=== PATIENT | female | born 1955 | race Caucasian/White ===

== ENCOUNTER 2017-02-24 11:15 | Outpatient (CLI) | payer MEDICARE, MEDICAID | END 2017-02-24 11:16 | disposition home or self-care (01) | LOC: BICRAD 11:15 | PROVIDERS: ATTEND Internal Medicine | DX: J18.9 Pneumonia, unspecified organism (principal); J98.4 Other disorders of lung | CPT/HCPCS: 71020 ==

== ENCOUNTER 2017-03-30 08:34 | Outpatient (CLI) | payer MEDICARE, MEDICAID ==
--- NOTE | 2017-03-30 11:06 | CT ---
CT THORAX WITH CONTRAST: DATE: 03/30/17. HISTORY: A 61-year-old female with lung cancer, currently in remission, status post chemotherapy and radiation therapy. Followup. COMPARISON: 08/29/16. TECHNIQUE: IV iodinated contrast media: 70 mL of Isovue 370. FINDINGS: The previously demonstrated left hilar mild soft tissue density material causing mild narrowing of pr oximal branches of the left mainstem bronchus, has not significantly changed. There is mild strandin g of the central pulmonary parenchyma around this, consistent with post radiation scarring of the pul monary parenchyma. The previously mentioned slightly enlarged, approximately 0.7 cm lymph node anter ior to the origin of the right mainstem bronchus, is stable. There are no new, enlarged mediastinal lymph nodes. Thoracic aorta is normal. No suspicious pulmonary mass. Bullae at the left lung apex consistent with COPD. Smaller and fewer bullae at the right upper lobe medially. No pleural effusio n, cardiomegaly, suspicious adrenal mass, or pneumothorax. No major interval change. IMPRESSION: 1. Post radiation changes of the left hilum and in the adjacent central left pulmonary parenchyma. 2. Small biapical bullae, is evidence for at least mild emphysema. 3. No major interval change since 08/28/16. CHAVEZ Verma POS: [facility]
== END 2017-03-30 08:35 | disposition home or self-care (01) ==
LOC: CT 08:34
PROVIDERS: ATTEND Internal Medicine Hematology & Oncology
DX: C34.82 Malignant neoplasm of overlapping sites of left bronchus and lung (principal); J43.9 Emphysema, unspecified; Z92.3 Personal history of irradiation
CPT/HCPCS: 71260

== ENCOUNTER 2017-05-18 07:33 | Outpatient (CLI) | payer MEDICARE, MEDICAID ==
--- NOTE | 2017-05-18 09:16 | MRI ---
MRI BRAIN WITH AND WITHOUT IV CONTRAST: Date: 05/18/17 HISTORY: Mild cognitive impairment. FINDINGS: No evidence of infarct, hemorrhage, mass, midline shift, or abnormal extra-axial fluid collections ar e seen. The ventricular size is appropriate and the basilar cisterns are patent. No restricted diffus ion is seen. No significant abnormalities are noted on the highly sensitive FLAIR images. No blood pr oducts are seen on the gradient echo sequences. No abnormal postcontrast enhancement is identified. T he visualized paranasal sinuses are well aerated. A tiny amount of fluid is seen in the mastoid air c ells. IMPRESSION: Unremarkable exam. POS: [facility]
[2017-05-18] MEDS ORDERED: Gadobenate Dimeglumine 529 MG/1 ML (20ML VIAL) ONE (16:14)
== END 2017-05-18 07:34 | disposition home or self-care (01) ==
LOC: MRI 07:33
PROVIDERS: ATTEND Psychiatry & Neurology Neurology
DX: G31.84 Mild cognitive impairment of uncertain or unknown etiology (principal)
CPT/HCPCS: 36415; 70553; 82565; A9579

== ENCOUNTER 2017-08-28 20:23 | Emergency (ER) | payer MEDICARE, MEDICAID ==
[2017-08-28] MEDS ORDERED: Lorazepam 2 MG/ML VIAL ONE (20:44)
[2017-08-28] MEDS ORDERED: methylPREDNISolone Sod Succ/PF 125 MG/2 ML VIAL ONE (20:44)
[2017-08-28 21:04] LABS: #Basophils 0.1 thou/uL (0.0-0.2); #Eosinphils 0.1 thou/uL (0.0-0.7); #Lymphocytes 3.9 thou/uL (1.20-3.40); #Monocytes 0.6 thou/uL (0.11-0.59); #Neutrophils 3.7 thou/uL (1.40-6.50); %Basophils 1.4 % (0.0-1.0); %Eosinophils 1.1 % (0.0-10.0); %Lymphocytes 46.4 % (21.0-51.0); %Monocytes 7.3 % (0.0-10.0); %Neutrophils 43.8 % (42.0-75.0); Hemoglobin 16.1 g/dL (12.0-16.0); Mean Corpuscular HGB CONC 33.9 g/dL (32.0-36.0); Mean Corpuscular Hemoglobin 31.7 pg (27.0-31.0); Mean Corpuscular Volume 93.6 fL (78.0-98.0); Mean Platelet Volume 7.2 fL (7.4-10.4); Platelet Count 267 thou/uL (130-400); RBC Distribution Width 13.3 % (11.5-14.5); Red Blood Cell (RBC) Count 5.09 mill/uL (4.20-5.40); White Blood Cell (WBC) Count 8.3 thou/uL (4.8-10.8)
[2017-08-28 21:22] LABS: ALT (SGPT) 20 U/L (8-55); AST (SGOT) 39 U/L (5-34); Albumin 4.8 g/dL (3.4-4.8); Alkaline Phosphatase 99 U/L (40-150); Anion Gap 20 mmol/L (10-20); BUN (Urea Nitrogen) 10 mg/dL (9.8-20.1); Bilirubin, Total 0.7 mg/dL (0.2-1.2); Calc. Creatinine Clearance 0 mL/min (70-130); Calcium 9.8 mg/dL (7.8-10.44); Carbon Dioxide 25 mmol/L (23-31); Chloride 102 mmol/L (98-107); Estimated GFR-MDRD 77; Globulin 3.5 g/dL (2.4-3.5); Glucose 90 mg/dL (80-115); Magnesium 2.2 mg/dL (1.6-2.6); Potassium 3.5 mmol/L (3.5-5.1); Protein, Total 8.3 g/dL (6.0-8.3); Sodium 143 mmol/L (136-145)
[2017-08-28 21:25] LABS: CKMB 3.9 ng/mL (0-6.6); Troponin I Less than 0.010 ng/mL (< 0.028)
--- NOTE | 2017-08-28 21:49 | RAD ---
RADIOGRAPH CHEST 1 VIEW: 08/28/17 HISTORY: 61-year-old female with dyspnea. FINDINGS: There is hyperinflation of the lungs, consistent with COPD. There is no evidence of air space densit y, pneumothorax, or pulmonary edema. The lateral costophrenic angles are sharp. The cardiomediastina l silhouette is normal; no cardiomegaly. IMPRESSION: 1) No acute pulmonary findings. 2) Emphysema. shahram [] POS: [facility]
== END 2017-08-28 22:15 | disposition home or self-care (01) ==
LOC: ERS 20:23
DX: J44.1 Chronic obstructive pulmonary disease with (acute) exacerbation (principal); F17.210 Nicotine dependence, cigarettes, uncomplicated
CPT/HCPCS: 36415; 71045; 80053; 82553; 83735; 84484; 85025; 85379; 93005; 94640; 96374; 96375; J2060; J2930; J7620

== ENCOUNTER 2017-09-03 11:05 | Emergency (ER) | payer MEDICARE, MEDICAID ==
[2017-09-03 12:54] LABS: Bilirubin Moderate (Negative); Blood, Urine Trace (Negative); Clarity CLEAR (Clear); Glucose, Urine (Dipstick) Negative (Negative); Leukocyte Small (Negative); Nitrite Negative (Negative); Protein, Urine (Dipstick) Trace mg/dL (Neg-Trace); Specific Gravity, Urine 1.031 (1.002-1.036); pH, Urine 5.5 (5.0-9.0)
[2017-09-03 12:58] LABS: Bacteria/HPF None Seen HPF (None Seen); Hyaline Casts/LPF 0-3 HYALINE CAST LPF (0-3 Hyaline); Pathc Cast-AUWi Flag 0.43 (0-2.49); RBC/HPF 0-3 HPF (0-3); Squamous Epithelial 0-3 HPF (0-3); WBC/HPF 0-3 HPF (0-3)
[2017-09-03 13:00] LABS: Band 3 % (5-11); Hemoglobin 15.1 g/dL (12.0-16.0); Lymphocytes 10 % (21-51); MDiff Complete? YES; Mean Corpuscular HGB CONC 33.5 g/dL (32.0-36.0); Mean Corpuscular Hemoglobin 31.9 pg (27.0-31.0); Mean Corpuscular Volume 95.4 fL (78.0-98.0); Mean Platelet Volume 7.6 fL (7.4-10.4); Monocytes 7 % (0-10); Neutrophil 78 % (42-75); PLT Morphology Comment Appears Adequate; Platelet Count 183 thou/uL (130-400); RBC Distribution Width 13.4 % (11.5-14.5); RBC Morphology Normal; Reactive Lymphocytes 2 % (0-10); Red Blood Cell (RBC) Count 4.72 mill/uL (4.20-5.40); White Blood Cell (WBC) Count 11.2 thou/uL (4.8-10.8)
[2017-09-03 13:11] LABS: ALT (SGPT) 25 U/L (8-55); AST (SGOT) 35 U/L (5-34); Acetaminophen Less than 6.0 mcg/mL (10.0-30.0); Albumin 4.5 g/dL (3.4-4.8); Alcohol Less than 10 mg/dL (Less than 10); Alkaline Phosphatase 92 U/L (40-150); Anion Gap 14 mmol/L (10-20); BUN (Urea Nitrogen) 19 mg/dL (9.8-20.1); Bilirubin, Total 1.3 mg/dL (0.2-1.2); Calc. Creatinine Clearance 0 mL/min (70-130); Calcium 9.9 mg/dL (7.8-10.44); Carbon Dioxide 29 mmol/L (23-31); Chloride 100 mmol/L (98-107); Estimated GFR-MDRD 81; Globulin 3.1 g/dL (2.4-3.5); Glucose 96 mg/dL (80-115); Potassium 3.3 mmol/L (3.5-5.1); Protein, Total 7.6 g/dL (6.0-8.3); Salicylate Less than 8.0 mg/dL (15.0-30.0); Sodium 140 mmol/L (136-145)
[2017-09-03 13:12] LABS: Crystals/HPF 2+ CA OXALATE HPF (Negative)
[2017-09-03 14:06] LABS: PTT 27.1 SEC (22.9-36.1); Prothrombin Time 13.2 SEC (12.0-14.7)
[2017-09-03 15:04] LABS: Free T4 (Free Thyroxine) 1.3 ng/dL (0.70-1.48)
[2017-09-03 16:02] LABS: HBCM Index 0.09 S/CO (0-0.79); HBSAg Index 0.18 S/CO (0-0.99); HIV (1/2) Antibody/Antigen Non-Reactive (NonReactive); HIV 1/2 INDEX 0.13 S/CO (<1.00); Hep A IgM AB Non-Reactive (NonReactive); Hep A IgM S/CO 0.08 S/CO (0-0.79); Hep B Surf Ag Non-Reactive S/CO (NonReactive); Hep C IgG Ab Non-Reactive (NonReactive); Hep C Index 0.16 S/CO (0-0.79); Hepatitis B Core IGM Abs Non-Reactive (NonReactive)
[2017-09-04 12:08] LABS: ANA Symphony (Qualitative) Negative (Negative); dsDNA IgG Antibody 0.6 IU/mL (<10 Negative)
== END 2017-09-03 15:50 | disposition home or self-care (01) ==
LOC: ERS 11:05
DX: G62.9 Polyneuropathy, unspecified (principal); R21 Rash and other nonspecific skin eruption; F17.210 Nicotine dependence, cigarettes, uncomplicated; F41.9 Anxiety disorder, unspecified
CPT/HCPCS: 36415; 80053; 80074; 80307; 81003; 81015; 82550; 82595; 83615; 84439; 84443; 84481; 85025; 85610; 85652; 85730; 86038; 86140; 86225; 86880; 87389; 99284

== ENCOUNTER 2017-10-15 03:15 | Emergency (ER) | payer MEDICARE, MEDICAID ==
[2017-10-15] MEDS ORDERED: Folic Acid 1 MG TAB ONE (04:17)
[2017-10-15 04:40] LABS: #Basophils 0.1 thou/uL (0.0-0.2); #Eosinphils 0.1 thou/uL (0.0-0.7); #Lymphocytes 1.4 thou/uL (1.20-3.40); #Monocytes 0.5 thou/uL (0.11-0.59); #Neutrophils 4.2 thou/uL (1.40-6.50); %Basophils 1.3 % (0.0-1.0); %Eosinophils 1.4 % (0.0-10.0); %Lymphocytes 22.1 % (21.0-51.0); %Monocytes 7.8 % (0.0-10.0); %Neutrophils 67.4 % (42.0-75.0); Hemoglobin 15.4 g/dL (12.0-16.0); Mean Corpuscular HGB CONC 34.1 g/dL (32.0-36.0); Mean Corpuscular Hemoglobin 33.5 pg (27.0-31.0); Mean Corpuscular Volume 98.3 fL (78.0-98.0); Mean Platelet Volume 6.9 fL (7.4-10.4); Platelet Count 283 thou/uL (130-400); RBC Distribution Width 13.3 % (11.5-14.5); White Blood Cell (WBC) Count 6.3 thou/uL (4.8-10.8)
[2017-10-15 04:59] LABS: ALT (SGPT) 33 U/L (8-55); AST (SGOT) 52 U/L (5-34); Albumin 4.6 g/dL (3.4-4.8); Alcohol 304 mg/dL (Less than 10); Alkaline Phosphatase 86 U/L (40-150); Anion Gap 23 mmol/L (10-20); BUN (Urea Nitrogen) 7 mg/dL (9.8-20.1); Bilirubin, Total 0.7 mg/dL (0.2-1.2); Calc. Creatinine Clearance 0 mL/min (70-130); Carbon Dioxide 23 mmol/L (23-31); Chloride 100 mmol/L (98-107); Estimated GFR-MDRD 89; Globulin 2.9 g/dL (2.4-3.5); Glucose 81 mg/dL (80-115); Lipase 15 U/L (8-78); Protein, Total 7.5 g/dL (6.0-8.3); Sodium 143 mmol/L (136-145)
[2017-10-15 05:02] LABS: Troponin I Less than 0.010 ng/mL (< 0.028)
[2017-10-15] MEDS ORDERED: NS 0.9% w/ 20 MEQ KCL 1,000 ML IV SCH (05:30)
[2017-10-15] MEDS ORDERED: Potassium Chloride 20 MEQ TAB ONE (06:10)
--- NOTE | 2017-10-15 08:15 | RAD ---
PORTABLE CHEST: History: Chest pain. Comparison: 08-28-17 FINDINGS: Lung peters are clear of infiltrate. Prominence of the left hilar region is a stable finding. No infi ltrate or effusion. Heart size is normal. IMPRESSION: No acute finding or interval change noted. POS: [facility]
== END 2017-10-15 12:04 | disposition home or self-care (01) ==
LOC: ERS 03:15
DX: R07.89 Other chest pain (principal); F10.10 Alcohol abuse, uncomplicated; E87.6 Hypokalemia; F41.9 Anxiety disorder, unspecified; F17.210 Nicotine dependence, cigarettes, uncomplicated; Z85.118 Personal history of other malignant neoplasm of bronchus and lung; Y90.6 Blood alcohol level of 120-199 mg/100 ml
CPT/HCPCS: 36415; 71045; 80053; 80307; 82553; 83690; 84484; 85025; 93005; 96365; 96366

== ENCOUNTER 2017-11-25 22:58 | Inpatient (IN) | payer MEDICARE, MEDICAID ==
--- NOTE | 2017-11-25 23:57 | CT ---
CT BRAIN 11/25/17 HISTORY: Trauma. Noncontrast enhanced CT images of the brain is obtained. The patient hit his head after fall with loss of consciousness. A noncontrast enhanced CT images of the brain is obtained. No evidence of acute intracranial masses, hemorrhages, strokes or contusions seen. Ventricles are of normal size. IMPRESSION: Normal CT brain. POS: [facility]
--- NOTE | 2017-11-26 00:03 | CT ---
CT CERVICAL SPINE: 11/25/17 HISTORY: Trauma, fall, injury, neck pain. Axial images are obtained with coronal and sagittal reconstructions. CT images cervical spine demonstrate anterior osteophytes at the C4-5, C5-6, and C6-7 levels. This is compatible with changes of spondylosis. No evidence of acute cervical spine fractures seen. The fa cets and vertebral bodies are unremarkable. The posterior elements are unremarkable. There is an area of calcified and partially spiculated densities in both upper lobes. This may repres ent areas of scar with possible areas of calcifications or mycetomas within the cavitary areas of upp er lobe lesions. Has this patient been exposed to previous lung infections? IMPRESSION: No evidence of acute cervical spine fracture. POS: [facility]
[2017-11-26 00:24] LABS: #Basophils 0.1 thou/uL (0.0-0.2); #Eosinphils 0.1 thou/uL (0.0-0.7); #Lymphocytes 1.4 thou/uL (1.20-3.40); #Monocytes 0.4 thou/uL (0.11-0.59); #Neutrophils 4.8 thou/uL (1.40-6.50); %Eosinophils 1.6 % (0.0-10.0); %Lymphocytes 19.9 % (21.0-51.0); %Monocytes 6.5 % (0.0-10.0); %Neutrophils 71.1 % (42.0-75.0); Hemoglobin 13.4 g/dL (12.0-16.0); Mean Corpuscular HGB CONC 32.5 g/dL (32.0-36.0); Mean Corpuscular Hemoglobin 33.4 pg (27.0-31.0); Mean Platelet Volume 8.1 fL (7.4-10.4); Platelet Count 177 thou/uL (130-400); RBC Distribution Width 12.7 % (11.5-14.5); White Blood Cell (WBC) Count 6.8 thou/uL (4.8-10.8)
[2017-11-26 00:46] LABS: Troponin I Less than 0.010 ng/mL (< 0.028)
[2017-11-26 00:51] LABS: ALT (SGPT) 48 U/L (8-55); AST (SGOT) 74 U/L (5-34); Acetaminophen Less than 6.0 mcg/mL (10.0-30.0); Albumin 4.6 g/dL (3.4-4.8); Alkaline Phosphatase 75 U/L (40-150); Anion Gap 17 mmol/L (10-20); BUN (Urea Nitrogen) 15 mg/dL (9.8-20.1); Bilirubin, Total 2.1 mg/dL (0.2-1.2); CK (CPK) 176 U/L (29-168); Calc. Creatinine Clearance 0 mL/min (70-130); Calcium 10.3 mg/dL (7.8-10.44); Carbon Dioxide 27 mmol/L (23-31); Chloride 100 mmol/L (98-107); Estimated GFR-MDRD 72; Globulin 2.9 g/dL (2.4-3.5); Glucose 96 mg/dL (80-115); Protein, Total 7.5 g/dL (6.0-8.3); Salicylate Less than 8.0 mg/dL (15.0-30.0); Sodium 141 mmol/L (136-145)
[2017-11-26 00:59] LABS: Potassium 2.9 mmol/L (3.5-5.1)
[2017-11-26] MEDS ORDERED: Potassium Bicarbonate/Cit Ac 25 MEQ TAB ONE (01:03)
[2017-11-26 01:09] LABS: Alcohol Less than 10 mg/dL (Less than 10)
[2017-11-26] MEDS ORDERED: Lorazepam 2 MG/ML VIAL ONE (01:22)
[2017-11-26 01:38] LABS: Bilirubin Small (Negative); Blood, Urine Small (Negative); Clarity CLEAR (Clear); Glucose, Urine (Dipstick) Negative (Negative); Leukocyte Negative (Negative); Nitrite Negative (Negative); Protein, Urine (Dipstick) Negative (Neg-Trace); Specific Gravity, Urine 1.018 (1.002-1.036); pH, Urine 5.5 (5.0-9.0)
[2017-11-26 01:41] LABS: Bacteria/HPF None Seen HPF (None Seen); Pathc Cast-AUWi Flag 1.45 (0-2.49); Squamous Epithelial 0-3 HPF (0-3); WBC/HPF 0-3 HPF (0-3)
[2017-11-26 01:48] LABS: Amphetamine Not Detected (NotDetected); Barbiturates Screen Not Detected (NotDetected); Benzodiazepine Screen Not Detected (NotDetected); Cocaine Metabolite Screen Not Detected (NotDetected); Medtox Control Line Valid? VALID (VALID); Medtox Reader # READER 4; Methadone Not Detected (NotDetected); Methamphetamine Not Detected (NotDetected); Opiate Screen Not Detected (NotDetected); Oxycodone Screen Not Detected (NotDetected); Phencyclidine (PCP) Not Detected (NotDetected); THC/Cannabinoid Screen Not Detected (NotDetected); Tricyclic Screen Not Detected (NotDetected)
[2017-11-26 01:57] LABS: Hyaline Casts/LPF 0-3 HYALINE CAST LPF (0-3 Hyaline)
[2017-11-26 01:58] LABS: Renal Epithelial None Seen HPF (0-3); Transitional Epithelial NONE SEEN HPF (0-3)
[2017-11-26] MEDS ORDERED: Lorazepam 2 MG/ML VIAL SLOW IVP PRN ×2 (02:41→08:40)
[2017-11-26] MEDS ORDERED: Ondansetron ODT 4 MG TAB SL PRN (02:41)
[2017-11-26] MEDS ORDERED: Ondansetron HCl/PF 4 MG/2 ML Vial IVP PRN ×2 (02:41→08:40)
[2017-11-26] MEDS ORDERED: Acetaminophen 325 MG TAB PO PRN ×2 (02:41→08:40)
[2017-11-26 02:53] VITALS: BMI 21.2
[2017-11-26] MEDS ORDERED: Bisacodyl 5 MG TAB PO PRN ×2 (08:40)
[2017-11-26] MEDS ORDERED: Nitroglycerin 0.4 MG TAB (25 Tab Bottle) SL PRN (08:40)
[2017-11-26] MEDS ORDERED: Loratadine 10 MG TAB PO PRN (08:40)
[2017-11-26] MEDS ORDERED: Benzonatate 100 MG CAP PO PRN (08:40)
[2017-11-26] MEDS ORDERED: hydrALAZINE 20 MG/ML VIAL SLOW IVP PRN (08:40)
[2017-11-26] MEDS ORDERED: Calcium Carbonate 500 MG ChewTAB PO PRN (08:40)
[2017-11-26] MEDS ORDERED: traMADol HCl 50 MG TAB PO PRN (08:40)
[2017-11-26] MEDS ORDERED: Senokot 8.6 MG TAB PO PRN ×2 (08:40)
[2017-11-26] MEDS ORDERED: cloNIDine 0.1 MG TAB PO PRN (08:40)
[2017-11-26] MEDS ORDERED: Mag-Al 1200 mg/1200 mg/30 ML UDCUP PO PRN (08:40)
[2017-11-26] MEDS ORDERED: Diabetic Tussin 200 MG/10 ML UDCUP PO PRN (08:40)
[2017-11-26] MEDS ORDERED: Sodium Chloride 0.9% 1,000 ML IV SCH (08:45)
[2017-11-26] MEDS ORDERED: Multivitamins, Adult 10 ML, Thiamine HCl 100 MG, Folic Acid 1 MG in Dextrose 5 %-0.45 %... IV SCH (09:00)
[2017-11-26 10:42] LABS: Potassium 3.3 mmol/L (3.5-5.1)
[2017-11-26] MEDS ORDERED: levETIRAcetam 500 MG TAB PO SCH (11:00)
--- NOTE | 2017-11-26 11:09 | HP ---
DATE OF ADMISSION: 11/26/2017 PRIMARY CARE PHYSICIAN: Dr. Mery Low. CHIEF COMPLAINT: Fall, possible syncope. HISTORY OF PRESENT ILLNESS: Ms. Murphy is a 62-year-old female with known history of lung cancer, sta tus post chemotherapy, radiation, and supposedly in remission as well as history of alcohol abuse, to bacco abuse, and seizure disorder, medication noncompliance, who presented to the emergency room as a ramiro. History is mainly obtained by the patient herself, who is a very poor historian and electronic medical records have been reviewed in entirety. Ms. Murphy lives alone "sort of an apartment." Reportedly, she was walking to her door, fell, and pas sed out. The last thing she remember is that she was in the ambulance. She could not tell me what e xactly transpired and who called the EMS. She otherwise reports that she has been feeling fine. She denies any seizure. She reports that her seizures were like a few months ago, which includes a full tonic-clonic seizure activity. She is not currently on any medication. However, she does take some sleeping medications prescribed by her primary care physician and also continues to drink. She last drank a big drink of rum and coke yesterday. She denies any fever, chills, nausea, vomiting, diarrh ea. She denies any abdominal pain, chest pain, shortness of breath, or dizziness. She is still driv ing and reports that she does not necessarily need any help. Upon presentation to the ER, she was hemodynamically stable with blood pressure 126/78, heart rate of 82, afebrile, 99% on room air. Her initial evaluation showed a [place] Coma Scale of 15. She was a wake, alert, oriented x2. Twelve lead EKG showed some sinus arrhythmia. Head CT and cervical spinal CT were negative for fracture or subluxation or brain hemorrhage. Her potassium was found to be emmie n at 2.9. She received 1 mg of IV Ativan as well as 50 mEq of potassium and 1 liter of normal saline in the ER and is now being admitted for syncope workup. PAST MEDICAL HISTORY: 1. As per the records, history of lung cancer status post chemotherapy and radiation. 2. COPD. 3. History of seizure disorder. 4. Depression. PAST SURGICAL HISTORY: 1. Tubal ligation. 2. Tonsillectomy. 3. Adenoidectomy. 4. Cardiac catheterization in 2010, which was normal per the records per patient. ALLERGIES: No known medication allergy. PERSONAL HISTORY: Continues to smoke about one half to 1 pack cigarettes per day and drinks one fift h of rum almost on a daily basis. She lives alone. No history of drug abuse. FAMILY HISTORY: Coronary artery disease in the family. Maternal grandmother from lung cancer i n her 70s and her mother from breast cancer in her mid 50s. CURRENT MEDICATIONS: Trazodone 50 mg at bedtime and buspirone 10 mg p.o. b.i.d. CODE STATUS: FULL CODE, discussed with the patient. REVIEW OF SYSTEM: Difficult to obtain as the patient is somnolent and just waking up and does not an swer the questions directly. Otherwise, as per HPI. LABORATORY DATA: CBC is unremarkable. Serum chemistry showed potassium of 2.9, total bilirubin 2.1, AST 74. Creatinine kinase 176. Cardiac enzymes normal. Urinalysis showed ketones, blood, and smal l bilirubin. Urine drug screen is negative. Serum salicylate, acetaminophen, and plasma alcohol lev els are within normal limits. CT scan of the brain by my review has no hemorrhage, mass, or fracture s. CT scan of the cervical spine is negative for fracture or subluxation. Chest x-ray was not done. PHYSICAL EXAMINATION: VITAL SIGNS: Most recent vital signs, temperature 97.9, pulse of 73, respirations 20, saturating 96% on room air, blood pressure 113/58. GENERAL: The patient appears disheveled, as somnolent but when woken up, she is awake, alert, orient ed at least x2. She appears cachectic. HEENT: Extremely poor dental hygiene and dry mucous membrane. Head is normocephalic, atraumatic. P upils equal, reactive to light and accommodation. No scleral icterus. NECK: Supple without any lymphadenopathy, JVD, or bruit. CHEST: Clear to auscultation without any wheezing, rales, or rhonchi. CARDIOVASCULAR: Rate and rhythm is regular without any murmur, rubs, or gallops. ABDOMEN: Soft, nontender, nondistended. There is no right upper quadrant tenderness either. No gua rding, rebound, or rigidity. EXTREMITIES: Free of any cyanosis, clubbing, or edema. NEUROLOGIC: Limited because of patient's cooperation. She is freely moving all 4 extremities agains t gravity. Sensation is intact. Dqdfav-bo-iptn testing is difficult as the patient is still very so mnolent. PSYCHIATRIC: Normal affect. IMPRESSION AND PLAN: 1. Fall and possible syncope. I am not sure if the patient had an actual syncopal episode versus th is was a combination of alcohol intake with the medications she takes for sleep. Given the fact that she has history of seizure disorder, currently not on any medication: Seizures can also not be rule d out. At this time, we will start the workup for syncope. We will obtain a chest x-ray given her h istory of lung cancer as well as a transthoracic echocardiogram and carotid Doppler ultrasound. We w ill also start her on Keppra p.o. b.i.d. as it seems like that she is still having on and off seizure s. We will obtain an EEG and request consultation with Neurology. Unfortunately, there is no neurol ogist marketing information coordinator for our hospital today. If she cannot be evaluated inpatient, this can be finished as an outpatient. We will start her on gentle IV fluids as she does appear dehydrated on examination, h old her trazodone for now. 2. Hypokalemia. The patient has been replenished with oral potassium. We will recheck potassium le spencer and also a magnesium level. She will be continued on normal saline for now. 3. History of seizure disorder. Start her on Keppra for now and obtain an EEG if feasible inpatient . 4. History of chronic obstructive pulmonary disease, currently seems to be compensated. We will add nebulizers as needed. 5. Hyperbilirubinemia. We will obtain a right upper quadrant ultrasound as the patient does also blackburn ve bilirubin in the urine. She is otherwise quite asymptomatic with that. 6. Code status: FULL CODE. 7. Add deep venous thrombosis and gastrointestinal prophylaxis. 8. Disposition: Ms. Murphy is currently being admitted for workup for possible syncope. Currently, she is under observation status. Further management will depend upon her clinical course.
--- NOTE | 2017-11-26 11:31 | ULT ---
CAROTID ARTERIAL DOPPLER ULTRASOUND: DATE: 11/26/17 COMPARISON: None. HISTORY: Syncope. TECHNIQUE: Multiplanar Hutson scale sonographic imaging of the arterial structures of the neck obtained with color flow and spectral analysis. FINDINGS: Antegrade blood flow and normal arterial waveforms are documented within the carotid and vertebral sy stem bilaterally. VESSEL PSV (cm/sec) EDV (cm/sec) Right CCA 84 24 Right ICA 64 22 Right ECA 43 10 Left CCA 65 20 Left ICA 66 25 Left ECA 56 11 ICA/CCA ratio is 0.8 on the right and 1.0 on the left. IMPRESSION: No hemodynamically significant stenosis on the basis of sonographic velocity criteria. POS: [facility]
--- NOTE | 2017-11-26 12:06 | ULT ---
RIGHT UPPER QUADRANT ULTRASOUND: DATE: 11/26/17. COMPARISON: None. HISTORY: Abnormal liver function tests. TECHNIQUE: Multiplanar, brown scale, sonographic imaging of the right upper quadrant provided. FINDINGS: The imaged pancreas is unremarkable. The distal body and tail are obscured by bowel gas. The hepatic parenchyma is heterogeneous and echogenic, suggesting hepatocellular disease, such as hep atic steatosis. No gallbladder wall thickening or pericholecystic fluid. No gallstones are noted. The right kidney measures 9.6 cm craniocaudal dimension and demonstrates no stone, hydronephrosis, or mass. The distal CBD is prominent, measuring up to approximately 7 mm. IMPRESSION: 1. Increased echogenicity of the hepatic parenchyma suggesting hepatocellular disease, such as steat osis. 2. Upper limits of normal common bile duct size. Given history of abnormal liver function tests, fu rther assessment via CT or MRI of abdomen is advised to evaluate for possible biliary obstruction. CODE T POS: [facility]
[2017-11-26] MEDS: Famotidine 20 MG TAB PO SCH ×2 (13:20→21:03)
[2017-11-26] MEDS: busPIRone HCl 10 MG TAB PO SCH ×2 (13:21→21:04)
--- NOTE | 2017-11-26 13:23 | RAD ---
FRONTAL RADIOGRAPH OF CHEST PORTABLE UPRIGHT: Date: 11/26/17 COMPARISON: 10/15/17. HISTORY: Syncope and lung cancer. FINDINGS: There is prominence of the left hilar shadow, consistent with the patient's history of lung cancer. There is increased linear interstitial density and pulmonary hyperinflation suggesting underlying sta ble COPD. No focal consolidation or alveolar edema. There is a questionable rounded area of increased density in the mid right hemidiaphragm along the in ferior tip of the scapula. This could be a confluence of shadows, something external to the patient, or a nodule. Recommend follow-up PA and lateral chest imaging for full assessment. IMPRESSION: Questionable round density in the mid right lung zone, for which 2 views of the chest is advised. No lobar consolidation or alveolar edema. CODE T. POS: [facility]
[2017-11-26] MEDS ORDERED: Potassium Chloride 40 MEQ in Sodium Chloride 0.9% 250 ML 250 ML IVPB SCH ×2 (13:45→14:00)
--- NOTE | 2017-11-26 13:52 | PDOC.EVN ---
Event Note - Event Note Event Note: Pt with noted persistent altered mental status .Will need further work up and care. Not safe for discharge. Will change to Inpatient and re evaluate.
[2017-11-26] MEDS ORDERED: Magnesium 2 GM/NS 0.9% 100 ML 2 GM in Premix Bag 1 BAG IVPB SCH (14:00)
[2017-11-26] MEDS: Enoxaparin Sodium 40 MG/0.4 ML SYRINGE SC SCH (14:47)
[2017-11-26] MEDS ORDERED: traZODone HCl 50 MG TAB PO SCH (21:00)
[2017-11-26] MEDS: levETIRAcetam 500 MG TAB PO SCH (21:04)
[2017-11-27] MEDS ORDERED: Potassium Chloride 20 MEQ TAB PO SCH (00:45)
[2017-11-27 04:28] LABS: #Basophils 0.1 thou/uL (0.0-0.2); #Eosinphils 0.2 thou/uL (0.0-0.7); #Lymphocytes 1.5 thou/uL (1.20-3.40); #Monocytes 0.3 thou/uL (0.11-0.59); #Neutrophils 3.8 thou/uL (1.40-6.50); %Basophils 1.2 % (0.0-1.0); %Eosinophils 3.3 % (0.0-10.0); %Lymphocytes 25.5 % (21.0-51.0); %Monocytes 5.6 % (0.0-10.0); %Neutrophils 64.5 % (42.0-75.0); Hemoglobin 11.8 g/dL (12.0-16.0); Mean Corpuscular Hemoglobin 33.1 pg (27.0-31.0); Mean Platelet Volume 8.3 fL (7.4-10.4); Platelet Count 132 thou/uL (130-400); RBC Distribution Width 12.8 % (11.5-14.5); Red Blood Cell (RBC) Count 3.55 mill/uL (4.20-5.40); White Blood Cell (WBC) Count 5.8 thou/uL (4.8-10.8)
[2017-11-27 04:40] LABS: Anion Gap 11 mmol/L (10-20); BUN (Urea Nitrogen) 14 mg/dL (9.8-20.1); Calc. Creatinine Clearance 74 mL/min (70-130); Calcium 8.5 mg/dL (7.8-10.44); Carbon Dioxide 24 mmol/L (23-31); Chloride 105 mmol/L (98-107); Estimated GFR-MDRD 89; Glucose 89 mg/dL (80-115); Magnesium 1.8 mg/dL (1.6-2.6); Potassium 4.1 mmol/L (3.5-5.1); Sodium 136 mmol/L (136-145)
[2017-11-27] MEDS ORDERED: Prevnar 13-Val Conj/PF 0.5 ML SYRINGE IM ONE (09:00)
[2017-11-27] MEDS: Famotidine 20 MG TAB PO SCH (10:07)
[2017-11-27] MEDS: levETIRAcetam 500 MG TAB PO SCH (10:08)
[2017-11-27] MEDS: busPIRone HCl 10 MG TAB PO SCH (10:09)
[2017-11-27] MEDS: Enoxaparin Sodium 40 MG/0.4 ML SYRINGE SC SCH (10:10)
[2017-11-27 12:09] VITALS: BP 92/54; TEMP 98.4
--- NOTE | 2017-11-28 00:08 | DIS ---
DATE OF ADMISSION: 11/26/2017 DATE OF DISCHARGE: 11/27/2017 DISCHARGE DIAGNOSES: 1. Encephalopathy, likely metabolic. 2. Syncopal episode, unclear etiology. 3. Hypokalemia, resolved. 4. Chronic obstructive pulmonary disease without exacerbation. 5. History of lung cancer, status post chemotherapy and radiation. 6. Alcohol abuse. 7. Hypokalemia, resolved. CONSULTATIONS: None. PERTINENT LABORATORY AND X-RAY FINDINGS: Potassium ranged between 2.9-4.1, AST 74, ALT of 48, total bilirubin 2.1, magnesium ranged between 1.2-1.8. CBC showed MCV of 103. Urine drug screen dated , showed plasma alcohol level less than 10. Urine culture dated 11/26/2017, showed no growth at [address] of the cervical spine dated 11/25/2017, showed no acute fracture or dislocation. CT of the brain without contrast dated 11/25/2017, showed no acute intracranial process. Abdominal ult rasound dated 11/26/2017, showed a hepatic steatosis. Carotid Doppler study dated 11/26/2017, showed no hemodynamically significant stenosis. Portable chest x-ray dated 11/26/2017, showed no acute car diopulmonary process. A 2D transthoracic echocardiogram dated 11/26/2017, showed ejection fraction o f 55-60%. Grade 2/3 diastolic dysfunction noted. HOSPITAL COURSE: Patient was observed on the telemetry unit after initially presenting with a questi onable syncopal episode and fall with altered mentation. The patient underwent extensive evaluation including neuro imaging and metabolic screening showing no acute intracranial process by CT imaging o f the brain. Questionable multifactorial influence including alcohol use in the context of questiona ble seizure disorder. The patient was also noted with hypokalemia treated with potassium supplementa tion and correcting by the time of discharge. The patient's overall mentation had improved with supp ortive management. The patient was alert and oriented x3, tolerating regular oral intake and voiding appropriately. No observed seizure activity during the hospital course. The patient's presentation likely multifactorial including the influence of alcohol. I have examined the patient at time of sadia larsen and discussed followup instructions. The patient verbalized understanding and agreement read y for discharge on 11/27/2017. DISCHARGE MEDICATIONS: 1. BuSpar 10 mg p.o. b.i.d. 2. Trazodone 50 mg p.o. at bedtime. FOLLOWUP: The patient will follow up with [facility] in [place], [place] within 7 days of discharge. CONDITION ON DISCHARGE: Stable. ACTIVITY: Ad bernard. DIET: Regular. CODE STATUS: FULL. DISPOSITION: Home, 11/27/2017.
--- NOTE | 2017-11-28 13:29 | EKG ---
Test Reason : FALL Blood Pressure : / mmHG Vent. Rate : 069 BPM Atrial Rate : 069 BPM P-R Int : 152 ms QRS Dur : 068 ms QT Int : 418 ms P-R-T Axes : 101 057 062 degrees QTc Int : 447 ms Sinus rhythm with marked sinus arrhythmia Confirmed by SHOAIB GA ([id number]), supervising editor news reel KUMAR FERNANDEZ ([id number]) on 11/28/2017 1:28:52 PM Referred By: Confirmed By:SHOAIB GA
== END 2017-11-27 16:15 | disposition home or self-care (01) | DRG 72 ==
LOC: ERS 22:58 → 2SW 11-26 02:34 → OBSVTOIN 11-26 13:48
PROVIDERS: ADMIT Internal Medicine; ATTEND Internal Medicine
DX: G93.41 Metabolic encephalopathy (principal); E87.6 Hypokalemia; J44.9 Chronic obstructive pulmonary disease, unspecified; Z85.118 Personal history of other malignant neoplasm of bronchus and lung; F10.10 Alcohol abuse, uncomplicated; Z92.21 Personal history of antineoplastic chemotherapy; G40.909 Epilepsy, unspecified, not intractable, without status epilepticus
CPT/HCPCS: 36415; 51701; 70450; 71045; 72125; 76705; 80048; 80053; 80306; 80307; 81003; 81015; 82553; 83735; 84484; 85025; 87086; 90471; 90670; 93005; 93306; 93880; 95816; 95819; 96361; 96374; 99406; A4216; A4353; G0009; J1650; J2060; J3411; J3475; J3480; J7042; J7050

== ENCOUNTER 2018-04-24 09:51 | Emergency (ER) | payer MEDICARE, MEDICAID ==
[2018-04-24 10:25] LABS: #Basophils 0.1 thou/uL (0.0-0.2); #Eosinphils 0.1 thou/uL (0.0-0.7); #Lymphocytes 1.7 thou/uL (1.20-3.40); #Monocytes 0.3 thou/uL (0.11-0.59); #Neutrophils 8.3 thou/uL (1.40-6.50); %Eosinophils 0.7 % (0.0-10.0); %Lymphocytes 15.8 % (21.0-51.0); %Monocytes 3.2 % (0.0-10.0); %Neutrophils 79.3 % (42.0-75.0); Hemoglobin 15.9 g/dL (12.0-16.0); Mean Corpuscular HGB CONC 32.6 g/dL (32.0-36.0); Mean Corpuscular Hemoglobin 32.7 pg (27.0-31.0); Mean Platelet Volume 7.4 fL (7.4-10.4); Platelet Count 221 thou/uL (130-400); RBC Distribution Width 12.7 % (11.5-14.5); Red Blood Cell (RBC) Count 4.87 mill/uL (4.20-5.40); White Blood Cell (WBC) Count 10.5 thou/uL (4.8-10.8)
[2018-04-24 10:41] LABS: ALT (SGPT) 15 U/L (8-55); AST (SGOT) 35 U/L (5-34); Albumin 4.9 g/dL (3.4-4.8); Alkaline Phosphatase 86 U/L (40-150); Anion Gap 18 mmol/L (10-20); BUN (Urea Nitrogen) 15 mg/dL (9.8-20.1); Calc. Creatinine Clearance 0 mL/min (70-130); Calcium 10.2 mg/dL (7.8-10.44); Carbon Dioxide 25 mmol/L (23-31); Chloride 101 mmol/L (98-107); Estimated GFR-MDRD 69; Globulin 3.4 g/dL (2.4-3.5); Glucose 138 mg/dL (80-115); Potassium 3.4 mmol/L (3.5-5.1); Protein, Total 8.3 g/dL (6.0-8.3); Sodium 141 mmol/L (136-145)
--- NOTE | 2018-04-24 13:35 | CT ---
CTA CHEST WITH 3D VOLUME RENDERING WITH CONTRAST: Date: 04/24/18 INDICATION: Chest pain. Tachycardia. COMPARISON: 03/30/17 CT thorax. FINDINGS: The pulmonary arteries are patent. No acute abnormality of the thoracic aorta. There is scattered vas cular disease. Evidence of pulmonary emphysema. There is reticulonodular density at the medial left a pex adjacent bulla, with adjacent reticulonodularity. There is curvilinear calcific density at each a pex, more notable o the left. Bibasilar subsegmental atelectasis is seen. There is a mild nonspecific soft tissue fullness, ill-defined, involving the left hilum. Metallic clip is seen at the medial asp ect of the junction of the aortic arch and descending thoracic aorta. Incidentally imaged low attenua tion within the hepatic parenchyma which may represent hepatic steatosis. IMPRESSION: 1. There is no acute pulmonary embolus. 2. Pulmonary emphysema. There is reticulonodularity at the left apex with adjacent curvilinear presu med pleural based calcification. This may be related to an area of scar, although given underlying no dularity, atypical infectious/inflammatory process and/or neoplasm cannot be excluded. Therefore, rec ommend a follow-up CT thorax in 4-6 months to reevaluate. 3. Ill-defined mild soft tissue prominence of the left hilum, grossly stable to prior CT thorax. Pat ient has a history of prior radiation therapy. Correlate clinically. CODE T. POS: [facility]
--- NOTE | 2018-05-01 20:10 | EKG ---
Test Reason : CHEST PAIN Blood Pressure : / mmHG Vent. Rate : 113 BPM Atrial Rate : 113 BPM P-R Int : 168 ms QRS Dur : 070 ms QT Int : 344 ms P-R-T Axes : 076 066 082 degrees QTc Int : 471 ms Sinus tachycardia Cannot rule out Anterior infarct , age undetermined Abnormal ECG Confirmed by LOIS MORALES, DONALD ([id number]), web editor DEONNA GODINEZ ([id number]) on 05/01/2018 8:10:05 PM Referred By: Confirmed By:DONALD ABREU MD
== END 2018-04-24 13:51 | disposition home or self-care (01) ==
LOC: ERS 09:51
DX: R07.89 Other chest pain (principal); R91.1 Solitary pulmonary nodule; F41.9 Anxiety disorder, unspecified; F17.210 Nicotine dependence, cigarettes, uncomplicated; Z79.899 Other long term (current) drug therapy
CPT/HCPCS: 71275; 80053; 83880; 84484; 85025; 93005; 96360

== ENCOUNTER 2018-11-05 10:41 | Observation (INO) | payer MEDICARE, MEDICAID ==
[2018-11-05 11:31] LABS: INR-International Normal Ratio 1.1; PTT 26.8 SEC (22.9-36.1); Prothrombin Time 13.9 SEC (12.0-14.7)
[2018-11-05 11:41] LABS: Band 3 % (5-11); Hemoglobin 16.7 g/dL (12.0-16.0); Lymphocytes 16 % (21-51); MDiff Complete? YES; Mean Corpuscular HGB CONC 34.9 g/dL (32.0-36.0); Mean Corpuscular Hemoglobin 34.9 pg (27.0-31.0); Mean Platelet Volume 8.9 fL (7.4-10.4); Monocytes 1 % (0-10); Neutrophil 80 % (42-75); Platelet Count 85 thou/uL (130-400); Platelet Morphology Comment Appears Decreased; RBC Distribution Width 14.2 % (11.5-14.5); RBC Morphology Normal; Red Blood Cell (RBC) Count 4.79 mill/uL (4.20-5.40); White Blood Cell (WBC) Count 5.5 thou/uL (4.8-10.8)
[2018-11-05 11:44] LABS: ALT (SGPT) 31 U/L (8-55); AST (SGOT) 80 U/L (5-34); Albumin 4.5 g/dL (3.4-4.8); Alkaline Phosphatase 123 U/L (40-150); Anion Gap 22 mmol/L (10-20); BUN (Urea Nitrogen) 10 mg/dL (9.8-20.1); Bilirubin, Total 1.2 mg/dL (0.2-1.2); CK (CPK) 209 U/L (29-168); Calc. Creatinine Clearance 0 mL/min (70-130); Calcium 9.2 mg/dL (7.8-10.44); Carbon Dioxide 24 mmol/L (23-31); Chloride 96 mmol/L (98-107); Estimated GFR-MDRD 89; Globulin 3.2 g/dL (2.4-3.5); Glucose 103 mg/dL (80-115); Protein, Total 7.7 g/dL (6.0-8.3); Sodium 139 mmol/L (136-145)
[2018-11-05 11:48] LABS: Potassium 2.6 mmol/L (3.5-5.1)
--- NOTE | 2018-11-05 11:49 | RAD ---
RADIOGRAPH CHEST 1 VIEW: DATE: 11/05/2018 HISTORY: 62 year old female with right-sided numbness of sudden onset. COMPARISON: 10/15/2017 FINDINGS: There are no airspace densities, pulmonary edema, pneumothorax, or cardiomegaly. The lateral costophr enic angles are sharp. Again noted is the left hilar enlargement with spiculated margins. There has been no significant interval change. No mediastinal widening. IMPRESSION: 1. No acute cardiopulmonary findings. 2. Spiculated left hilar enlargement is unchanged since one year ago. Evidence for previously treated left lung cancer.
[2018-11-05] MEDS ORDERED: Potassium Chloride 20 MEQ TAB ONE (11:53)
--- NOTE | 2018-11-05 11:59 | CT ---
HEAD CT WITHOUT CONTRAST: Date: 11/05/18 COMPARISON: None. HISTORY: Stroke alert, right-sided tingling and numbness. TECHNIQUE: Axial CT imaging at 5 mm intervals from vertex through skull base without contrast. FINDINGS: Imaged paranasal sinuses/mastoid air cells are well aerated. There is no displaced calvarial fracture . No intracranial hemorrhage, midline shift, mass effect, or ventricular enlargement is seen. IMPRESSION: No acute findings. If there is clinical concern for intra-arterial thrombus, CT angiogram of the head is advised. MRI could be performed to evaluate for acute infarction. Results called to Dr. Melton at 1123 hours on 11/05/18. CODE CR. POS: [facility]
--- NOTE | 2018-11-05 12:03 | CT ---
CTA of the head with IV contrast and 3-D reformatted imaging. CTA of the neck with IV contrast and 3-D reformatted imaging. INDICATION: Stroke COMPARISON: CT the brain without contrast dated November 05, 2018 FINDINGS: CTA OF THE HEAD WITH CONTRAST: CTA OF THE BRAIN: Right ICA: Patent. Right MCA: Patent. Right ZANDER: Patent. ACOM: Patent. Left ICA: Patent. Left MCA: Patent. Left ZANDER: Patent. PCOMs: Patent. Vertebral arteries: Patent. Basilar Artery: Patent. engineering technologist: There is origin of the left [employer] Incidentals: No abnormal enhancement CTA OF THE NECK WITH CONTRAST: Right CCA: Patent. Right ICA: Patent. Right Subclavian: Patent. Right Vertebral Artery: Patent. Left CCA: Patent. Left ICA: Patent. Left Subclavian: Patent. Left Vertebral Artery: Patent. Aerodigestive tract: Clear. Parotids/Submandibular/Thyroid glands: Normal. Lymph nodes: No pathologically enlarged lymph nodes. Lung Apices: Biapical pleural-parenchymal scarring and emphysema Bones: No acute osseous abnormality. Incidentals: None. IMPRESSION: 1. No hemodynamically significant stenosis, occlusion or aneurysmal formation. 2. Findings called to Dr. Melton at 11:55 AM on November 05, 2018
[2018-11-05] MEDS ORDERED: Aspirin 325 MG TAB ONE (12:42)
[2018-11-05] MEDS ORDERED: ISOVUE-370 76%-LOCM 1 ML ONE (12:47)
[2018-11-05] MEDS ORDERED: Gadobenate Dimeglumine 529 MG/1 ML (20ML VIAL) ONE (12:52)
[2018-11-05 12:58] LABS: Bacteria/HPF None Seen HPF (None Seen); Bilirubin Negative (Negative); Blood, Urine 1+ (Negative); Clarity Clear (Clear); Glucose, Urine (Dipstick) Normal (Negative); Leukocyte Negative Leu/uL (Negative); Nitrite Negative (Negative); Protein, Urine (Dipstick) 10 mg/dL (Neg-Trace); Squamous Epithelial 0-3 HPF (0-3); Urobilinogen Normal mg/dL (Less than 2); WBC/HPF 0-3 HPF (0-3)
[2018-11-05 13:35] LABS: Magnesium 1.3 mg/dL (1.6-2.6); Phosphorus 3.4 mg/dL (2.3-4.7)
[2018-11-05] MEDS ORDERED: Ondansetron PF 4 MG/2 ML Vial IVP PRN (13:58)
[2018-11-05] MEDS ORDERED: Ondansetron ODT 4 MG TAB PO PRN (13:58)
[2018-11-05] MEDS ORDERED: Acetaminophen 325 MG TAB PO PRN (13:58)
[2018-11-05] MEDS ORDERED: Acetaminophen 650 MG Suppository PR PRN (13:58)
[2018-11-05] MEDS ORDERED: Senokot S 8.6-50 MG TAB PO PRN (13:58)
[2018-11-05] MEDS ORDERED: Guaifenesin DM 100-10/5 ML UDCUP PO PRN (13:58)
[2018-11-05] MEDS ORDERED: Magnesium Sulfate 2 GM in Sodium Chloride 0.9% 100 ML IVPB SCH (14:45)
--- NOTE | 2018-11-05 15:51 | MRI ---
Brain MRI with and without contrast: 11/05/2018 COMPARISON: 10/18/2017 History: Lung cancer with history of radiation and chemotherapy treatment. Sudden onset of numbness i nvolving entire right arm now involving right leg and bilateral feet TECHNIQUE: Multiplanar multisequence MR imaging of the brain obtained with and without contrast FINDINGS: The diffusion weighted imaging demonstrates no evidence for acute infarction. Axial gradient echo imaging demonstrates no evidence for intracranial hemorrhage. There is patchy increased T2 signal within the boy suggesting a minimal degree of small vessel disea se. The axial gradient echo imaging demonstrates no evidence for intracranial hemorrhage. No midline shift or mass effect. No ventricular enlargement. Arterial flow voids at the axial level of the skull base appear grossly unremarkable on the T2-weight ed imaging. The visualized paranasal sinuses and mastoid air cells are well aerated. The postcontrast imaging demonstrates no abnormal enhancement within the brain parenchyma. IMPRESSION: No acute findings.
[2018-11-05 15:55] LABS: Folate (Folic Acid) 3.7 ng/mL (7.0-31.4)
[2018-11-05 16:28] LABS: Lactic Acid 2.1 mmol/L (0.5-2.2)
[2018-11-05 16:29] LABS: Anion Gap 17 mmol/L (10-20); Carbon Dioxide 23 mmol/L (23-31); Chloride 100 mmol/L (98-107); Potassium 3.3 mmol/L (3.5-5.1); Sodium 137 mmol/L (136-145)
[2018-11-05 17:46] VITALS: BMI 17.6
[2018-11-05 18:29] LABS: Amphetamine Not Detected (NotDetected); Barbiturates Screen Not Detected (NotDetected); Benzodiazepine Screen Not Detected (NotDetected); Cocaine Metabolite Screen Not Detected (NotDetected); Medtox Control Line Valid? VALID (VALID); Medtox Reader # READER 1; Methadone Not Detected (NotDetected); Methamphetamine Not Detected (NotDetected); Opiate Screen Not Detected (NotDetected); Oxycodone Screen Not Detected (NotDetected); Phencyclidine (PCP) Not Detected (NotDetected); THC/Cannabinoid Screen Not Detected (NotDetected); Tricyclic Screen Not Detected (NotDetected)
[2018-11-05] MEDS: Potassium Chloride 10 MEQ in Premix Bag 1 BAG IVPB SCH ×2 (18:30→18:38)
--- NOTE | 2018-11-05 19:55 | HP ---
PRIMARY CARE PHYSICIAN: None. CHIEF COMPLAINT: Right arm numbness. HISTORY OF PRESENT ILLNESS: Ms. Murphy is a 62-year-old woman, who presents complaining of right upper extremity numbness. The patient states she felt badly as soon as she woke up this morning. She states this morning she felt a wave of numbness extending from her feet and upper body to her neck. She denies having any associated headache, dizziness, or neck pain. She states she sat up and tried to stand, but felt as if her body was numb. Therefore, sat back down. Denies having any weakness in her legs and states she was able to stand, but had an uneasy feeling. She called out for help and on arrival by EMS states she only had residual numbness in her right arm. The patient states she feels confused and states she is unable to really pinpoint how her body is feeling, but states though she feels like her legs are numb. She is able to move them easily and has not noted any reduced strength. Her right arm, however, is the most prominent area where she does feel completely diminished sensation. She denies having any facial weakness or numbness or tingling. No slurred speech or dysarthria. No visual disturbances. No drooling. States she has never experienced anything like this before. In the emergency department, she underwent workup for possible TIA/stroke. A CT of the brain was done, which showed no acute findings. It was stated there was concern for intra-arterial thrombus. Therefore, CT angiogram of the head was completed and showed no hemodynamically significant stenosis, occlusion, or aneurysmal formation. A chest x-ray was done as well, and there were no acute cardiopulmonary findings. She has a known history of lung cancer for which she underwent chemoradiation in the past. On the x-ray, they visualized a spiculated left hilar enlargement unchanged from imaging done in October 2017. This was felt to be evidence for previously treated left lung cancer. Laboratory studies were done showing a normal full blood count. However, she did have a low potassium of 2.6, lactic acid of 3.9. The patient denies having any recent fevers, chills, or sweats. Denies having any headaches or dizziness. Has not had any changes with her appetite or weight loss. No gait disturbances. No abdominal pain or cramping. Denies having any urinary symptoms. No other complaints. PAST MEDICAL HISTORY: 1. History of lung cancer, status post chemo and radiation. 2. Anxiety. PAST SURGICAL HISTORY: 1. Tonsillectomy. 2. Tubal ligation. SOCIAL HISTORY: The patient reports not drinking for the last 4 years. She did drink heavily in the past. Denies any drug use. She does smoke currently about half a pack a day. ALLERGIES: NAPROXEN. CURRENT MEDICATIONS: Buspirone. PHYSICAL EXAMINATION: GENERAL: The patient appears thin, well developed, in no acute distress. VITAL SIGNS: Temperature 98.2, pulse 98, respirations 20, O2 saturation 100% on room air, blood pressure 132/87. HEENT: Normocephalic, atraumatic. Pupils are equal, round, and reactive to light. Sclerae without icterus. Oropharynx is clear. NECK: Supple. LUNGS: Clear bilaterally without any wheezes, rales, or rhonchi. CARDIAC: Regular rate and rhythm. ABDOMEN: Soft, nontender, nondistended. Normoactive bowel sounds present. EXTREMITIES: No lower leg swelling or edema. NEUROLOGIC: Examination inconsistent. The patient states she has complete numbness in her lower extremities. However, on examination, had limited areas with slightly reduced sensation on the lateral aspect of the left lower leg. She seems to have reduced sensation involving the right lower leg with sensation intact in her right foot, but reports reduced sensation in the left plantar aspect of her foot. The patient seems frustrated with inability to pinpoint or exactly she has altered sensation and states she has "weird sensation" throughout her entire body. She has numbness of her right upper extremity from her fingers up to her shoulder. She has normal power in bilateral feet. Able to plantarflex and extend against resistance. She does have weakness in the bilateral legs in terms of straight leg raising against resistance, but is able to straight leg raise both legs without resistance to about 35 degrees. She has slightly reduced hand private equity associate strength in the right hand. A 3/4 power in the right arm versus normal power in the left arm. Normal facial sensation. Normal facial movement. Normal speech. MUSCULOSKELETAL: No cervical spine or thoracic spine tenderness. IMPRESSION AND PLAN: Ms. Murphy is a pleasant 62-year-old woman, who presents complaining mainly of right upper extremity numbness, but seems to have some weakness in the bilateral lower extremities and some areas of lower extremity numbness. Following further discussion with Dr. Lunsford, who opted to obtain an MRI with and without contrast to assess for not only a possibility of cerebrovascular accident, but the possibility of a tumor given her history of lung cancer. It was felt given the inconsistent neuro exam, she could potentially be experiencing symptoms more so related to electrolyte disturbances. She has a low potassium of 2.6, and replacement has been initiated in the emergency department. We will continue to replace and we will also add on a magnesium. The patient has not been experiencing any nausea, vomiting, or diarrhea. We will recheck her lactic acid and potassium. The patient will be admitted under observation status to the Stroke Service. A Neurology consult has been requested. The patient's case was discussed with Dr. Lunsford, who agrees with plan of care as described above. The patient is full code. Her surrogate decision maker is her son, Ander Murphy. Job ID: [id number]
[2018-11-05] MEDS: Folic Acid 1 MG TAB PO SCH (22:53)
[2018-11-05] MEDS: Atorvastatin Calcium 40 MG TAB PO SCH (22:53)
[2018-11-05] MEDS: NS 0.9% w/ 20 MEQ KCL 1,000 ML/1,000 ML BAG IV SCH ×2 (22:54→22:56)
[2018-11-05] MEDS: Famotidine/PF 20 mg/2ml Vial SLOW IVP SCH (22:54)
[2018-11-06] MEDS: Lorazepam 2 MG/ML VIAL SLOW IVP PRN ×2 (01:26→12:50)
[2018-11-06 05:37] LABS: Anion Gap 13 mmol/L (10-20); BUN (Urea Nitrogen) 7 mg/dL (9.8-20.1); Calc. Creatinine Clearance 79 mL/min (70-130); Carbon Dioxide 27 mmol/L (23-31); Cardiac Risk 1.6 (Less than 4.5); Chloride 99 mmol/L (98-107); Cholesterol 122 mg/dl (< 200 Desired); Estimated GFR-MDRD Greater than 90; Glucose 78 mg/dL (80-115); HDL Cholesterol 77 mg/dL (>60 Neg Risk); LDL Cholesterol, Calculated 35 mg/dL; Magnesium 1.8 mg/dL (1.6-2.6); Sodium 136 mmol/L (136-145); Triglycerides 49 mg/dL (Less than 150)
[2018-11-06 05:42] LABS: Potassium 2.9 mmol/L (3.5-5.1)
[2018-11-06 06:25] LABS: #Eosinphils 0.1 thou/uL (0.0-0.7); #Lymphocytes 1.6 thou/uL (1.20-3.40); #Monocytes 0.4 thou/uL (0.11-0.59); #Neutrophils 3.7 thou/uL (1.40-6.50); %Basophils 0.8 % (0.0-1.0); %Eosinophils 2.3 % (0.0-10.0); %Lymphocytes 26.6 % (21.0-51.0); %Monocytes 6.7 % (0.0-10.0); %Neutrophils 63.6 % (42.0-75.0); Hemoglobin 12.7 g/dL (12.0-16.0); Mean Corpuscular HGB CONC 33.5 g/dL (32.0-36.0); Mean Corpuscular Hemoglobin 34.3 pg (27.0-31.0); Mean Platelet Volume 9.1 fL (7.4-10.4); Platelet Count 85 thou/uL (130-400); RBC Distribution Width 14.2 % (11.5-14.5); White Blood Cell (WBC) Count 5.9 thou/uL (4.8-10.8)
[2018-11-06] MEDS: NS 0.9% w/ 20 MEQ KCL 1,000 ML/1,000 ML BAG IV SCH ×2 (08:23→09:21)
[2018-11-06] MEDS ORDERED: Magnesium 2 GM/50 ML 2 GM in Premix Bag 1 BAG IVPB SCH (09:00)
[2018-11-06] MEDS: Aspirin 81 mg Enteric Coated Tablet PO SCH (09:24)
[2018-11-06] MEDS: Famotidine/PF 20 mg/2ml Vial SLOW IVP SCH ×2 (09:24→22:00)
[2018-11-06] MEDS: Folic Acid 1 MG TAB PO SCH ×2 (09:24→22:01)
--- NOTE | 2018-11-06 10:59 | PDOC.HOSPP ---
- Subjective Encounter Date: 11/06/18 Encounter Time: 10:55 Subjective: Patient seen and examined, no new issues or complaints. - Objective Vital Signs & Weight: Vital Signs (12 hours) Temp Pulse Resp BP Pulse Ox 11/06/18 07:45 98.4 F 46 L 18 108/61 100 11/06/18 07:23 65 14 95 11/06/18 04:00 98.0 F 56 L 16 97/56 L 97 11/06/18 00:00 97.9 F 54 L 16 112/69 98 Weight Weight 112 lb 8 oz I&O: 11/05/18 11/06/18 11/07/18 06:59 06:59 06:59 Intake Total 1840 1221 Balance 1840 1221 Result Diagrams: 11/06/18 06:00 11/06/18 04:55 Additional Labs: Accuchecks 11/05/18 11:07 POC Glucose 107 Hospitalist ROS - Medication Medications: Active Medications Generic Name Dose Route Start Last Admin Trade Name Freq PRN Reason Stop Dose Admin Acetaminophen 650 mg 11/05/18 13:58 11/05/18 22:53 Tylenol PO 650 mg Q4H PRN Administration Headache/Fever/Mild Pain (1-3) Albuterol/Ipratropium 3 ml 11/05/18 15:00 11/06/18 07:23 Duoneb NEB 3 ml [id number] CHAZ Administration Aspirin 81 mg 11/06/18 09:00 11/06/18 09:24 Ecotrin PO 81 mg DAILY CHAZ Administration Atorvastatin Calcium 40 mg 11/05/18 21:00 11/05/18 22:53 Lipitor PO 40 mg HS CHAZ Administration Famotidine 20 mg 11/05/18 21:00 11/06/18 09:24 Pepcid SLOW IVP 20 mg Q12HR CHAZ Administration Folic Acid 1 mg 11/05/18 21:00 11/06/18 09:24 Folvite PO 1 mg BID CHAZ Administration Potassium Chloride/Sodium Chloride 1,000 ml in 1,000 mls @ 100 mls/hr 14:45 11/06/18 09:21 Ns 0.9% W/ 20 Meq Kcl IV 1,000 mls .Q10H CHAZ Administration Magnesium Sulfate 2 gm/ Device 50 mls @ 50 mls/hr 11/06/18 09:00 11/06/18 10: 03 IVPB 11/06/18 11:00 50 mls NOW CHAZ Administration Lorazepam 1 mg 11/06/18 01:08 11/06/18 01:26 Ativan SLOW IVP 1 mg Q6H PRN Administration Anxiety/Agitation Ondansetron HCl 4 mg 11/05/18 13:58 11/05/18 22:53 Zofran IVP 4 mg Q6H PRN Administration Nausea/Vomiting - Exam General Appearance: NAD, awake alert Eye: PERRL, anicteric sclera ENT: normocephalic atraumatic, no oropharyngeal lesions Neck: supple, symmetric, no JVD, no thyromegaly Heart: RRR, no murmur, no gallops, no rubs Respiratory: CTAB, no wheezes, no rales, no ronchi Gastrointestinal: soft, non-tender, non-distended, normal bowel sounds Hosp A/P (1) Hypokalemia Code(s): E87.6 - HYPOKALEMIA Status: Acute (2) Hypomagnesemia Code(s): E83.42 - HYPOMAGNESEMIA Status: Acute (3) Abdominal pain Code(s): R10.9 - UNSPECIFIED ABDOMINAL PAIN Status: Acute (4) Lung malignancy Code(s): C34.90 - MALIGNANT NEOPLASM OF UNSP PART OF UNSP BRONCHUS OR LUNG Status: Acute (5) Anemia Code(s): D64.9 - ANEMIA, UNSPECIFIED Status: Acute - Plan - patient's Hgb dropped from 16.7 to 12, will check guiac - vitals stable - cont with IVFs - K also dropped again to 2.9, being replaced - will give another 2g of magnesium sulfate, target mg > 2 for now - repeat labs in AM - case and plan d/w patient at length, she understood and agreed with this plan.
--- NOTE | 2018-11-06 15:33 | CON ---
DATE OF TELEMEDICINE CONSULTATION: 11/06/2018 This report is via Telemedicine consultation. Registered nurse with the physician, Macarena. CHIEF COMPLAINT: Numbness of the left side of the face, left leg and arm, and right face. HISTORY OF PRESENT ILLNESS: The patient reports she developed sudden onset of left arm and leg and right face numbness yesterday. She felt weak and called 911, came to the hospital. She currently is asymptomatic this morning. At the time of our evaluation, the patient had symptoms that lasted 12 hours. Her last chemotherapy dose was four years ago, and her lung cancer is stable. She does not take aspirin on a regular basis. PAST MEDICAL HISTORY: The patient had lung cancer, which is in remission. Her chemotherapy was stopped four years ago, and she also has anxiety. PAST SURGICAL HISTORY: Tonsillectomy, tubal ligation. SOCIAL HISTORY: She does not drink. She used to drink in the past. She does smoke currently about half pack a day. Does not use any drugs. Lives by self. FAMILY HISTORY: Mother at 52 from breast cancer. Father at 72 from pneumonia. The patient has three sons, who are healthy and a sister who is 59 and healthy. ALLERGIES: NAPROXEN. MEDICATIONS: At home, buspirone. LABORATORY DATA: Her current lab workup, white count 5.9, hemoglobin 12.7, hematocrit 37.9, platelet count 85. Chemistry; sodium 136, potassium 3.3, chloride 100, bicarb 23, BUN 7, creatinine 0.59. IMAGING STUDIES: Brain MRI is negative for any acute findings, and CT [place] is also negative for any hemodynamically significant stenosis. REVIEW OF SYSTEMS: PULMONARY: Negative for any shortness of breath or cough. CARDIAC: Negative for chest pain or palpitations. GI: Negative for nausea, vomiting, or diarrhea. PSYCHIATRIC: Positive for anxiety. NEUROLOGICAL: Positive for numbness of the right face, left arm and leg. HEMATOLOGIC: Negative for bleeding diathesis or platelet dysfunction. PHYSICAL EXAMINATION: VITAL SIGNS: Blood pressure 108/61, temperature 98.4, pulse 46, respiratory rate 18, and O2 saturation 100. GENERAL APPEARANCE: Well-built, well-nourished lady, who is comfortable. CHEST: Clear vesicular breathing. CARDIOVASCULAR: S1 and S2 heard. No murmurs. ABDOMEN: Soft and nontender. No organomegaly noted. NEUROLOGICAL: Higher intellectual functions. Normal orientation to time, place , and person. Appropriate conversation. Cranial nerve examination; normal extraocular movements. Pupils are 2 mm, reactive to light. No facial asymmetry noted. The patient has normal sensation of face, normal hearing to finger rub. Normal elevation of palate. Tongue midline. Motor exam; bulk normal. Strength 5/5 throughout in upper and lower extremities, in iliopsoas, hamstrings, quadriceps, ankle dorsiflexion, plantar flexion, deltoid, biceps, triceps, wrist extension and flexion, finger extension and flexion bilaterally. Sensory examination; decreased sensation in the left upper limb, only in the dorsum of the arm, dorsal aspect of her left arm, the rest is normal. Gait not testable. Cerebellar, finger-to- nose, tikt-al-rlcl are normal. IMPRESSION: The patient is a 62-year-old lady with numbness of the right face, left arm and leg, which lasted about 12 hours. Most of her symptoms have resolved. Her MRI is negative for any acute stroke. CT angio is negative for any hemodynamically significant stenosis. Her echocardiogram was also reviewed. She did not have any evidence of thrombus or valvular abnormalities. Likely, this was a transient ischemic attack in the posterior circulation distribution based on the pattern of symptoms, and this could be due to hypertension, although the patient stated her blood pressures are generally within normal limits and this could be a microvascular infarct not visible on MRI at this time. RECOMMENDATIONS: Please start the patient on aspirin 81 mg per day along with statin for stroke prophylaxis. She can follow up with a neurologist as outpatient. I will see her as needed. Job ID: [id number] [facility]
[2018-11-06] MEDS ORDERED: Potassium Chloride 20 MEQ TAB PO SCH ×2 (16:00→21:00)
[2018-11-06] MEDS ORDERED: Lorazepam 2 MG/ML VIAL SLOW IVP PRN (16:07)
[2018-11-06] MEDS ORDERED: Multivitamins, Adult 10 ML, Thiamine HCl 100 MG, Folic Acid 1 MG in Dextrose 5 %-0.45 %... IV SCH (16:15)
[2018-11-06] MEDS: Atorvastatin Calcium 40 MG TAB PO SCH (22:01)
[2018-11-07 05:21] LABS: #Eosinphils 0.1 thou/uL (0.0-0.7); #Lymphocytes 1.3 thou/uL (1.20-3.40); #Monocytes 0.3 thou/uL (0.11-0.59); #Neutrophils 3.7 thou/uL (1.40-6.50); %Basophils 0.5 % (0.0-1.0); %Eosinophils 2.5 % (0.0-10.0); %Monocytes 5.8 % (0.0-10.0); %Neutrophils 68.3 % (42.0-75.0); Mean Corpuscular Hemoglobin 35.2 pg (27.0-31.0); Platelet Count 75 thou/uL (130-400); RBC Distribution Width 14.2 % (11.5-14.5); Red Blood Cell (RBC) Count 3.41 mill/uL (4.20-5.40); White Blood Cell (WBC) Count 5.5 thou/uL (4.8-10.8)
[2018-11-07 05:26] LABS: Anion Gap 11 mmol/L (10-20); BUN (Urea Nitrogen) 6 mg/dL (9.8-20.1); Calc. Creatinine Clearance 75 mL/min (70-130); Calcium 8.5 mg/dL (7.8-10.44); Carbon Dioxide 26 mmol/L (23-31); Chloride 102 mmol/L (98-107); Estimated GFR-MDRD Greater than 90; Glucose 104 mg/dL (80-115); Magnesium 1.7 mg/dL (1.6-2.6); Sodium 135 mmol/L (136-145)
[2018-11-07] MEDS: Folic Acid 1 MG TAB PO SCH (08:28)
[2018-11-07] MEDS: Aspirin 81 mg Enteric Coated Tablet PO SCH (08:28)
[2018-11-07] MEDS ORDERED: Famotidine 20 MG TAB PO SCH (09:00)
[2018-11-07 11:54] VITALS: BP 133/73; TEMP 98.8
--- NOTE | 2018-11-07 15:51 | DIS ---
DATE OF ADMISSION: 11/05/2018 DATE OF DISCHARGE: 11/07/2018 DISCHARGE DISPOSITION: To home. PRIMARY DISCHARGE DIAGNOSES: 1. transient ischemic attack, resolved. 2. Hypomagnesemia, resolved. 3. Hypokalemia, resolved. 4. Nausea and vomiting, resolved. 5. History of squamous cell lung cancer, in remission. 6. Tobacco abuse. PROCEDURES DONE DURING HOSPITALIZATION: The patient has had CT brain without contrast done, which showed no acute intracranial abnormality. CT angio of brain and neck done showed no hemodynamically significant stenosis or occlusion or aneurysm formation. MRI brain showed no acute findings. Echo with 2D Doppler showed EF of 50% to 55% with diastolic dysfunction. No thrombus was seen in cardiac chambers. H and H are 12 and 35, platelet count 75 with 68% neutrophils. Total cholesterol 122, triglycerides 49, LDL 35, and HDL 77. Vitamin B12 of 501. Folic acid 3.7. MCV was 104. Urine drug screen was negative. DISCHARGE MEDICATIONS: 1. Aspirin 81 mg p.o. daily. 2. Folic acid 1 mg p.o. twice daily. ALLERGIES: NAPROXEN. INPATIENT CONSULT: Dr. Brenda Jordan for Neurology. DISCHARGE PLAN: The patient to follow up with primary care physician in 1 week. BRIEF COURSE DURING HOSPITALIZATION: The patient initially came in with complaints of right arm numbness. She was essentially placed under observation on stroke unit. CT angio of brain and MRI of brain have not revealed any acute infarct. She had multiple electrolyte abnormalities, and these were corrected during her stay. Prior to discharge, she is ambulating. She is also eating well. She is otherwise hemodynamically and neurologically stable. She was also evaluated by Dr. Brenda Jordan for Neurology. The patient has been counseled with regard to tobacco abuse with prior history of squamous cell lung cancer in remission per the patient. She needs to follow up with her primary care physician in 1 week. Please note, I have seen and examined the patient on the day of discharge. Job ID: [id number]
== END 2018-11-07 14:12 | disposition home or self-care (01) ==
LOC: ERS 10:41 → ERHOLD 12:48 → 2SE 16:24
PROVIDERS: ADMIT Internal Medicine; ATTEND Internal Medicine
DX: G45.9 Transient cerebral ischemic attack, unspecified (principal); E83.42 Hypomagnesemia; E87.6 Hypokalemia; F41.9 Anxiety disorder, unspecified; Z79.899 Other long term (current) drug therapy; Z88.8 Allergy status to other drugs, medicaments and biological substances
CPT/HCPCS: 70450; 70496; 70498; 70553; 71045; 80048 ×2; 80051; 80053; 80061; 80306; 82274; 82550; 82607; 82746; 82962; 83605; 83735 ×3; 84100; 84484; 85025 ×3; 85610; 85730; 93005; 93306; 94640 ×3; 96366 ×3; 96367 ×2; 96375 ×2; 96376; 97139 ×5; G0378 ×4; 36415; 36416; 81003; 81015; 96365; A9577; J2060; J2405; J3411; J3475; J3480; J3490; J7042; J7620; Q9966; S0028

== ENCOUNTER 2018-11-15 15:24 | Observation (INO) | payer MEDICARE, MEDICAID ==
[~2018-11-15 15:24] MED LIST: ISOVUE-370 76%-LOCM 1 ML ONE
--- NOTE | 2018-11-15 16:35 | CT ---
CTA of the head with and without IV contrast and 3-D reformatted imaging. CTA of the neck with IV contrast and 3-D reformatted imaging. INDICATION: Bilateral extremity tingling COMPARISON: 11/05/2018 FINDINGS: CTA OF THE HEAD WITH AND WITHOUT CONTRAST: NONCONTRAST CT OF BRAIN: Hemorrhage: None [place]/Infarction: None. Midline Shift: None. Brain parenchyma: No pathologic enhancement Hydrocephalus: None. Skull and Extracranial Soft tissues: Normal. CTA OF THE BRAIN: Right ICA: Patent. Right MCA: Patent. Right ZANDER: Patent. ACOM: Patent. Left ICA: Patent. Left MCA: Patent. Left ZANDER: Patent. PCOMs: Patent. Redemonstration of a left SLURRY BLENDER origin. Vertebral arteries: Patent. Basilar Artery: Patent. propeller inspector: Patent. Incidentals: None. CTA OF THE NECK WITH CONTRAST: Right CCA: Patent. Right ICA: Patent. Minimal calcified plaque in the bifurcation. Right Subclavian: Patent. Right Vertebral Artery: Patent. Left CCA: Patent. Left ICA: Patent. Minimal calcified plaque in the bifurcation Left Subclavian: Patent. Left Vertebral Artery: Patent. Aerodigestive tract: Clear. Parotids/Submandibular/Thyroid glands: Normal. Lymph nodes: No pathologically enlarged lymph nodes. Lung Apices: Redemonstration of abnormal attenuation in the left upper lobe/left suprahilar region. There is associated emphysematous change in both visualized lung parenchyma. Bones: No acute osseous abnormality. Incidentals: None. IMPRESSION: 1. No hemodynamically significant stenosis, occlusion or aneurysmal formation. 2. No significant interval change. Results study discussed with Dr. Mai 11/15/2018 at 4:30 PM Code CR
--- NOTE | 2018-11-15 17:02 | CT ---
CT HEAD WITHOUT CONTRAST: INDICATIONS: Bilateral upper extremity numbness. COMPARISON: 11/05/2018 FINDINGS: There is no acute intracranial hemorrhage, mass effect, midline shift, or ventriculomegaly. Mild isc hemic disease of the cerebral white matter is present. IMPRESSION: No acute intracranial abnormality. Telephone call to ER physician placed at 1603 hours on 11/15/2018. CODE CR POS: TPC
[2018-11-15 17:04] LABS: #Lymphocytes 0.6 thou/uL (1.20-3.40); #Monocytes 0.5 thou/uL (0.11-0.59); #Neutrophils 7.2 thou/uL (1.40-6.50); %Basophils 0.5 % (0.0-1.0); %Eosinophils 0.2 % (0.0-10.0); %Lymphocytes 6.9 % (21.0-51.0); %Monocytes 6.2 % (0.0-10.0); %Neutrophils 86.3 % (42.0-75.0); Hemoglobin 14.9 g/dL (12.0-16.0); Mean Corpuscular HGB CONC 34.5 g/dL (32.0-36.0); Mean Corpuscular Hemoglobin 35.5 pg (27.0-31.0); Mean Platelet Volume 7.6 fL (7.4-10.4); Platelet Count 220 thou/uL (130-400); RBC Distribution Width 14.2 % (11.5-14.5); White Blood Cell (WBC) Count 8.3 thou/uL (4.8-10.8)
[2018-11-15 17:08] LABS: PTT 25.9 SEC (22.9-36.1); Prothrombin Time 13.3 SEC (12.0-14.7)
[2018-11-15 17:26] LABS: ALT (SGPT) 42 U/L (8-55); AST (SGOT) 67 U/L (5-34); Albumin 4.5 g/dL (3.4-4.8); Alkaline Phosphatase 108 U/L (40-150); Anion Gap 20 mmol/L (10-20); BUN (Urea Nitrogen) 16 mg/dL (9.8-20.1); Bilirubin, Total 1.4 mg/dL (0.2-1.2); CK (CPK) 84 U/L (29-168); Calc. Creatinine Clearance 0 mL/min (70-130); Calcium 9.7 mg/dL (7.8-10.44); Carbon Dioxide 25 mmol/L (23-31); Chloride 95 mmol/L (98-107); Estimated GFR-MDRD 70; Globulin 2.6 g/dL (2.4-3.5); Glucose 218 mg/dL (80-115); Potassium 3.4 mmol/L (3.5-5.1); Protein, Total 7.1 g/dL (6.0-8.3); Sodium 137 mmol/L (136-145)
[2018-11-15] MEDS ORDERED: Aspirin 325 MG TAB ONE (19:13)
[2018-11-15 22:49] VITALS: BMI 16.9
[2018-11-16] MEDS ORDERED: hydrALAZINE 20 MG/ML VIAL SLOW IVP PRN (08:42)
[2018-11-16] MEDS ORDERED: NS 0.9% w/ 20 MEQ KCL 1,000 ML/1,000 ML BAG IV SCH (08:45)
[2018-11-16] MEDS ORDERED: Lorazepam 1 MG TAB PO PRN (08:47)
[2018-11-16 09:28] LABS: ALT (SGPT) 35 U/L (8-55); AST (SGOT) 46 U/L (5-34); Albumin 4.5 g/dL (3.4-4.8); Alkaline Phosphatase 99 U/L (40-150); Anion Gap 15 mmol/L (10-20); BUN (Urea Nitrogen) 16 mg/dL (9.8-20.1); Bilirubin, Total 1.4 mg/dL (0.2-1.2); Calc. Creatinine Clearance 56 mL/min (70-130); Calcium 10.2 mg/dL (7.8-10.44); Carbon Dioxide 31 mmol/L (23-31); Chloride 94 mmol/L (98-107); Estimated GFR-MDRD 73; Globulin 3.2 g/dL (2.4-3.5); Glucose 106 mg/dL (80-115); Lipase 16 U/L (8-78); Magnesium 1.4 mg/dL (1.6-2.6); Potassium 3.2 mmol/L (3.5-5.1); Protein, Total 7.7 g/dL (6.0-8.3); Sodium 137 mmol/L (136-145)
[2018-11-16] MEDS: Aspirin 81 mg Enteric Coated Tablet PO SCH (09:31)
[2018-11-16] MEDS: Folic Acid 1 MG TAB PO SCH ×2 (09:31→21:16)
[2018-11-16] MEDS: busPIRone HCl 10 MG TAB PO SCH ×2 (09:31→21:16)
[2018-11-16] MEDS ORDERED: Magnesium Sulfate 4 GM in Sodium Chloride 0.9% 250 ML 250 ML IVPB SCH (09:45)
--- NOTE | 2018-11-16 11:12 | MRI ---
BRAIN MRI NONCONTRAST: Date: 11/16/18 INDICATION: History of stroke. Reference made to head CT from previous day. FINDINGS: There is no acute territorial infarction, intracranial mass effect, or midline shift. Ventricular sys tem is age-appropriate in size. There are a few scattered foci of signal alteration of the cerebral w pat matter, as well as within the boy, indicative of mild microvascular ischemic disease. No hemorr hagic susceptibility. IMPRESSION: No acute territorial infarction or mass effect. POS: TPC
[2018-11-16] MEDS ORDERED: Multivitamins, Adult 10 ML, Folic Acid 1 MG, Thiamine HCl 100 MG in Dextrose 5 %-0.45 %... IV SCH (11:45)
[2018-11-16] MEDS ORDERED: Lorazepam 1 MG TAB PO SCH (13:45)
--- NOTE | 2018-11-16 17:22 | HP ---
PRIMARY CARE PHYSICIAN: [facility] Call admission. The patient is following [facility]. REASON FOR ADMISSION: Rule out CVA. HISTORY OF PRESENT ILLNESS: A 63-year-old female who has underlying history of anxiety, depression, as well as alcoholism, who came to emergency room with complaint of paresthesia on the right side. There was concern of stroke and that is why she was admitted overnight to the stroke floor. Initially in the emergency room, the patient had CT brain and CT [place], which were unremarkable. Routine blood test showed macrocytosis, hypokalemia, and hypomagnesemia. The patient drinks alcohol heavily as per family report. She was not having any motor weakness. She did not have any speech problem. She has underlying history of lung cancer and in remission. After admission, the patient had MRI brain that also came back negative. The patient was recently admitted in our hospital in October. At that time, she had echocardiography, was done, which was unremarkable. REVIEW OF SYSTEMS: CONSTITUTIONAL: Negative for weight loss or gain, ability to conduct usual activities. SKIN: Negative for rash, itching. EYES: Negative for double vision, pain. ENT/MOUTH: Negative for nose bleeding, neck stiffness, pain, tenderness. CARDIOVASCULAR: Negative for palpitations, dyspnea on exertion, orthopnea. RESPIRATORY: Negative for shortness of breath, wheezing, cough, hemoptysis, fever or night sweats. GASTROINTESTINAL: Negative for poor appetite, abdominal pain, heartburn, nausea, vomiting, constipation, or diarrhea. GENITOURINARY: Negative for urgency, frequency, dysuria, nocturia. MUSCULOSKELETAL: Negative for pain, swelling. NEUROLOGIC/PSYCHIATRIC: Negative for anxiety, depression. ALLERGY/IMMUNOLOGIC: Negative for skin rash, bleeding tendency. Please see my HPI for pertinent positives and negatives. All other review of systems reviewed and negative except as mentioned in HPI. PAST MEDICAL HISTORY: COPD; seizure disorder; depression; and history of lung cancer, treated with chemo and radiation. PAST PSYCHIATRIC HISTORY: Anxiety and depression. PAST SURGICAL HISTORY: Tonsillectomy and tubal ligation. SOCIAL HISTORY: The patient has history of alcoholism. She is also smoker about 6 cigarettes every day. She denies any other illicit drug abuse. She lives at home with family. PAST PSYCHIATRIC HISTORY: Anxiety and depression. ALLERGIES: NO KNOWN DRUG ALLERGY. FAMILY HISTORY: Positive for coronary artery disease. Maternal grandmother from lung cancer in her 70s and her mother from breast cancer in her mid 50s. CURRENT HOME MEDICATIONS: 1. Buspirone 10 mg p.o. b.i.d. 2. Aspirin 81 mg p.o. daily. 3. Folic acid 1 mg p.o. b.i.d. EMERGENCY ROOM COURSE: Reviewed. The patient was given aspirin 325 mg. PHYSICAL EXAMINATION: VITAL SIGNS: Currently, blood pressure 130/69, pulse 122, respiratory rate 16, temperature 97.7, and saturation 97% on room air. Weight 59 kg. GENERAL: The patient is currently alert, awake, in no obvious acute distress. HEENT: Head; normocephalic, atraumatic. Eyes; pupils round, reactive to light. Extraocular muscle intact. No nystagmus. ENT; oropharynx within normal limits. Moist mucous membranes. No oral lesion. No pharyngeal erythema. No exudate. NECK: Supple. No JVD. No thyromegaly. No carotid bruit. No jugular venous distention. LUNGS: Clear to auscultation without any rhonchi or rales. CARDIAC: S1, S2. Regular without any murmur. No gallop. No rub. ABDOMEN: Soft. Bowel sounds present. Nontender. Nondistended. No organomegaly. No mass. No suprapubic tenderness. BACK: Unremarkable. No CVA tenderness. EXTREMITIES: Upper extremities, passive movement of all joints is normal. Lower extremities, no edema. Good distal pulsation. SKIN: No skin rash. HEMATOLOGICAL SYSTEM: No lymphadenopathy. NEUROLOGIC: Grossly nonfocal examination. The patient moves all 4 limbs. SKIN: No skin rash. PSYCHIATRIC: Normal affect. SIGNIFICANT LABORATORY DATA: EKG showing normal sinus rhythm, initially sinus tachycardia, currently normal rhythm. CT brain based on my review; no acute intracranial process. CT angiography, negative for any stenosis. MRI brain came back negative. CBC; WBC 8.3, hemoglobin 14.9, MCV 103, and platelets 220. INR 1.0. BMP; sodium 137, potassium 3.2, chloride 94, carbon dioxide 31, BUN 16, creatinine 0.79; glucose 106; hemoglobin A1c 5.0; and calcium 10.0. LFTs; AST 46, ALT 35, alkaline phosphatase 99, and albumin 4.5. TSH 0.26, free T4 of 1.0. Cortisol 17.10. Ammonia 23. Magnesium 1.4. ASSESSMENT AND PLAN: 1. Paresthesia, right side of upper extremity, resolved, unclear etiology. We have completely ruled out stroke. We are not suspecting any transient ischemic attack in this particular patient. CT brain, CT [place], as well as MRI brain all unremarkable, and when I assessed her bedside, I could not see any paresthesia or any subjective sensory motor weakness on that side. 2. Hypokalemia. We will replace potassium chloride 20 mEq p.o. b.i.d. 3. Hypomagnesemia. We will replace magnesium sulfate 4 g one time dose. 4. Alcoholism. The patient will be observed for alcohol withdrawal syndrome while in hospital. 5. Folate deficiency. We will continue folic acid 1 mg p.o. b.i.d. 6. Macrocytosis. Continue folic acid 1 mg p.o. b.i.d. 7. Protein calorie malnutrition, mild to moderate. Continue Ensure supplementation. 8. Deep venous thrombosis prophylaxis, Lovenox 30 mg subcu daily. GI prophylaxis, Pepcid 20 mg p.o. b.i.d. 9. Dyslipidemia. We will check lipid profile tomorrow and start Lipitor 10 mg p.o. at bedtime. 10. Anxiety and depression. We will continue buspirone 10 mg p.o. b.i.d. and lorazepam p.r.n. basis. DISPOSITION PLAN: Within 24 hours, we will consider discharging her to home tomorrow. Plan of care discussed with the patient in detail. Job ID: [id number]
[2018-11-16] MEDS ORDERED: Atorvastatin Calcium 10 MG TAB PO SCH (21:00)
[2018-11-16] MEDS ORDERED: Enoxaparin Sodium 30 MG/0.3 ML SYRINGE SC SCH (21:00)
[2018-11-16] MEDS ORDERED: Ziprasidone 20 MG CAP PO SCH (21:00)
[2018-11-16] MEDS: Famotidine 20 MG TAB PO SCH (21:16)
[2018-11-17] MEDS: Lorazepam 0.5 MG TAB PO PRN ×2 (01:53→09:25)
[2018-11-17 06:41] LABS: Albumin 3.8 g/dL (3.4-4.8); Anion Gap 11 mmol/L (10-20); BUN (Urea Nitrogen) 12 mg/dL (9.8-20.1); BUN/Creatinine Ratio 18.46; Calc. Creatinine Clearance 68 mL/min (70-130); Calcium 9.1 mg/dL (7.8-10.44); Carbon Dioxide 28 mmol/L (23-31); Chloride 102 mmol/L (98-107); Estimated GFR-MDRD Greater than 90; Glucose 85 mg/dL (80-115); Phosphorus 3.5 mg/dL (2.3-4.7); Potassium 3.3 mmol/L (3.5-5.1); Sodium 138 mmol/L (136-145)
[2018-11-17] MEDS ORDERED: Potassium Chloride 20 MEQ TAB PO SCH (08:30)
[2018-11-17] MEDS: busPIRone HCl 10 MG TAB PO SCH (09:25)
[2018-11-17] MEDS: Aspirin 81 mg Enteric Coated Tablet PO SCH (09:25)
[2018-11-17] MEDS: Famotidine 20 MG TAB PO SCH (09:25)
[2018-11-17] MEDS: Folic Acid 1 MG TAB PO SCH (09:25)
[2018-11-17 16:16] VITALS: BP 111/68; TEMP 97.6
--- NOTE | 2018-11-18 14:01 | DIS ---
DATE OF ADMISSION: 11/15/2018 DATE OF DISCHARGE: 11/17/2018 HISTORY: The patient is a 63-year-old female with a history of alcoholism, who had only recently been admitted to the hospital on observation for similar symptoms with right-sided tingling. The patient had a workup at that time, which was unremarkable. The patient returns with similar symptoms with essentially no significant findings noted. She did have an MRI performed in the emergency department, which was negative. She did have mild hypokalemia with a potassium of 3.2 and mild hypomagnesium at 1.4. The patient was placed in observation, monitored overnight. Her symptoms have fully resolved and did not recur. She was up and around without difficulties. She did have a CT angio as well in the emergency department, which was reviewed and showed no significant findings of hemodynamically significant stenosis with resolution of her symptoms. No new findings other than mild electrolyte disturbances. She was felt to be stable for discharge home. PHYSICAL EXAMINATION: VITAL SIGNS: On the day of discharge; temperature is 97.6, pulse 86, respirations 16, O2 saturation 98% on room air, BP 111/68. GENERAL APPEARANCE: Age-appropriate female, was awake and alert, in no distress. HEART: Regular rate and rhythm. LUNGS: Clear. ABDOMEN: Benign. EXTREMITIES: No edema. NEUROLOGIC: The patient appears to be intact without any focal deficits. DISPOSITION: The patient is discharged to home. DIET: She is to have a heart-healthy diet. ACTIVITY: Activity level is as tolerated. She will have home health and physical therapy. She will be on aspirin 325 daily. She will continue her folic acid and BuSpar. FOLLOWUP: She will follow up at the [facility] and she can follow up with Dr. Sin as an outpatient. She can return to the hospital should she feel the need at anytime. DISCHARGE DIAGNOSES: Right-sided paresthesias, possible transient ischemic attack, alcoholism, hypomagnesemia, hypokalemia. Job ID: [id number]
== END 2018-11-17 16:48 | disposition home health service (06) ==
LOC: ERS 15:24 → 2SE 22:08
PROVIDERS: ADMIT Hospitalist; ATTEND Hospitalist
DX: R20.2 Paresthesia of skin (principal); R20.0 Anesthesia of skin; F41.9 Anxiety disorder, unspecified; F32.9 Major depressive disorder, single episode, unspecified; E87.6 Hypokalemia; E83.42 Hypomagnesemia; J44.9 Chronic obstructive pulmonary disease, unspecified; G40.909 Epilepsy, unspecified, not intractable, without status epilepticus; F17.210 Nicotine dependence, cigarettes, uncomplicated; E53.8 Deficiency of other specified B group vitamins; D75.89 Other specified diseases of blood and blood-forming organs; E78.5 Hyperlipidemia, unspecified; F10.20 Alcohol dependence, uncomplicated; E46 Unspecified protein-calorie malnutrition; Z68.1 Body mass index [BMI] 19.9 or less, adult; Z79.82 Long term (current) use of aspirin; Z79.899 Other long term (current) drug therapy; Z88.6 Allergy status to analgesic agent
CPT/HCPCS: 70450; 70496; 70498; 70551; 80053; 80069; 82140; 82533; 82550; 83036; 83690; 83735 ×2; 84439; 84484; 85610; 85730; 93005; 96365; 96366; 96367; 96372; 96375; 97112; 97116; 97139 ×3; 99285; G0378 ×4; 36415; 84443; 85025; J1650; J3411; J3475; J3480; J7042; J7050; Q9966

== ENCOUNTER 2019-03-15 19:07 | Emergency (ER) | payer MEDICARE, MEDICAID ==
[2019-03-15 19:32] LABS: #Basophils 0.1 thou/uL (0.0-0.2); #Eosinphils 0.1 thou/uL (0.0-0.7); #Lymphocytes 1.2 thou/uL (1.20-3.40); #Monocytes 0.5 thou/uL (0.11-0.59); #Neutrophils 6.7 thou/uL (1.40-6.50); %Basophils 0.6 % (0.0-1.0); %Eosinophils 0.7 % (0.0-10.0); %Lymphocytes 14.4 % (21.0-51.0); %Monocytes 5.5 % (0.0-10.0); %Neutrophils 78.8 % (42.0-75.0); Hemoglobin 15.9 g/dL (12.0-16.0); Mean Corpuscular HGB CONC 33.2 g/dL (32.0-36.0); Mean Corpuscular Hemoglobin 31.3 pg (27.0-31.0); Mean Corpuscular Volume 94.5 fL (78.0-98.0); Mean Platelet Volume 7.9 fL (7.4-10.4); Platelet Count 242 thou/uL (130-400); RBC Distribution Width 11.8 % (11.5-14.5); Red Blood Cell (RBC) Count 5.06 mill/uL (4.20-5.40); White Blood Cell (WBC) Count 8.6 thou/uL (4.8-10.8)
[2019-03-15 19:55] LABS: ALT (SGPT) 21 U/L (8-55); AST (SGOT) 24 U/L (5-34); Albumin 5.4 g/dL (3.4-4.8); Alkaline Phosphatase 85 U/L (40-110); Anion Gap 18 mmol/L (10-20); BUN (Urea Nitrogen) 19 mg/dL (9.8-20.1); Bilirubin, Total 0.5 mg/dL (0.2-1.2); Calc. Creatinine Clearance 0 mL/min (70-130); Calcium 10.7 mg/dL (7.8-10.44); Carbon Dioxide 29 mmol/L (23-31); Chloride 99 mmol/L (98-107); Estimated GFR-MDRD 67; Globulin 3.9 g/dL (2.4-3.5); Glucose 164 mg/dL (80-115); Potassium 3.9 mmol/L (3.5-5.1); Protein, Total 9.3 g/dL (6.0-8.3); Sodium 142 mmol/L (136-145)
--- NOTE | 2019-03-15 20:48 | RAD ---
PORTABLE AP CHEST X-RAY 03/15/19 HISTORY: Intermittent chest pain. COMPARISON: 11/05/18. FINDINGS: The cardiac silhouette and pulmonary vasculature are within normal limits. The spiculated appearing d ensity in the left hilar region is again seen and stable when compared to the prior exam and also sta ble when compared to prior study on 10/15/17. The lungs otherwise appear clear. The left hilar prominen ce and associated layered densities and spiculated appearance involving the left hilum was also seen on CTA chest on 05/22/18. No new area of consolidation or pleural fluid is seen. There is a calcified biapical pleural and parenchymal scarring again present. IMPRESSION: 1. No acute cardiopulmonary process. 2. Spiculated left hilar enlargement stable compared to prior study as well as the study in 2018 . Patient has history of prior treated lung cancer. POS: [facility]
== END 2019-03-16 00:39 | disposition home or self-care (01) ==
LOC: ERS 19:07
DX: R07.2 Precordial pain (principal); F32.9 Major depressive disorder, single episode, unspecified; Z79.899 Other long term (current) drug therapy
CPT/HCPCS: 36415; 71045; 80053; 84484; 85025; 93005